=== PATIENT | female | born 1975 | race Caucasian/White ===

== ENCOUNTER 2020-11-26 15:45 | Outpatient (RCR) | payer OTHER | END 2020-12-13 | disposition home or self-care (01) | PROVIDERS: ATTEND Psychiatry & Neurology Neurology | DX: R42 Dizziness and giddiness (principal); R51.9 Headache, unspecified; Z90.89 Acquired absence of other organs; Z90.710 Acquired absence of both cervix and uterus; Z90.49 Acquired absence of other specified parts of digestive tract; Z98.890 Other specified postprocedural states ==